=== PATIENT | male | born 1950 | race Caucasian/White ===

== ENCOUNTER 2019-10-30 10:18 | Inpatient (IN) | payer MEDICARE ==
[2019-10-30] VITALS (233 sets, daily range): BP systolic 155–163; BP diastolic 82–90; PULSE 81–100; TEMP 98.4; O2SAT 81–97
[~2019-10-30] VITALS: Ht 152.4 cm; Wt 81.7 kg
[~2019-10-30 10:18] MED LIST: ADVAIR 250/28 DISKUS IH; LEVAQUIN 5500 MG/TAB PO; PREDNISONE20 MG PO; PRILOSEC 20MG20 MG PO; SINGULAIR10 MG PO; SPIRIVA INH; VYTORIN PO; ZYRTEC 10MG PO
[2019-10-30 10:54] LABS: BASO % 0.1 % (0.0-2.0); EOS % 0.3 % (0-4.0); GRAN % 73.4 % (42.2-75.2); HEMATOCRIT 37.8 % (42.0-52.0); HEMOGLOBIN 13.8 g/dl (13.5-18.0); LYMPH # 0.9 (1.2-3.4); LYMPH % 13.4 % (20.0-51.0); MEAN CELL VOLUME 88 fl (80.0-100.0); MEAN CORPUSCULAR HEMOGLOBIN 32 pg (27.0-31.0); MEAN CORPUSCULAR HGB CONC 37 g/dl (33.0-37.0); MEAN PLATELET VOLUME 8.4 fl (7.4-10.4); MONO # 0.8 (0.1-0.6); MONO % 12.2 % (1.7-9.3); PLATELET COUNT 211 K/mm3 (130-400); RED BLOOD COUNT 4.29 M/mm3 (4.20-5.60); REDCELL DISTRIBUTION WIDTH-CV 12.7 % (11.5-14.5)
[2019-10-30] MEDS ORDERED: SPIRIVA RE2.5 MCG/Ac IH (11:00)
[2019-10-30] MEDS ORDERED: LIPITOR 40MG TA40 MG PO (11:01)
[2019-10-30] MEDS ORDERED: TIAZAC180 MG PO (11:01)
[2019-10-30] MEDS ORDERED: PRINIVIL40 MG PO (11:01)
[2019-10-30] MEDS ORDERED: XOPENEX HF0.045 MG/A IH (11:02)
[2019-10-30 11:03] LABS: ARTERIAL BLD GAS TCO2 CT 21.6; ARTERIAL BLOOD GAS BASE EXCESS -1.1 (-2-2); ARTERIAL BLOOD GAS HCO3 20.8 meq/L (22-26); ARTERIAL BLOOD GAS PCO2 28.4 mmHg (35-45); ARTERIAL BLOOD GAS pH 7.48 (7.35-7.45)
[2019-10-30 11:06] LABS: ALANINE AMINOTRANSFERASE 33 U/L (4-49); ALBUMIN 3.9 gm/dL (3.5-5.0); ALKALINE PHOSPHATASE 90 U/L (50-136); ANION GAP 12 mmol/L (7-16); AST,SGOT 66 U/L (15-37); BILIRUBIN,TOTAL 1.4 mg/dL (0.0-1.0); BLOOD UREA NITROGEN 12 mg/dL (9-20); CALCIUM 8.4 mg/dL (8.4-10.2); CARBON DIOXIDE 23 mmol/L (22-30); CHLORIDE 91 mmol/L (98-107); CREATININE, serum 0.82 (0.66-1.25); GLUCOSE 104 mg/dL (74-106); MAGNESIUM 1.8 mg/dL (1.6-2.3); POTASSIUM 3.4 mmol/L (3.4-5.0); SODIUM 126 mmol/L (137-145); TOTAL PROTEIN 6.8 gm/dL (6.4-8.2)
[2019-10-30 11:15] LABS: TROPONIN-I < 0.012 ng/mL (0.000-0.035)
[2019-10-30 11:17] LABS: C-REACTIVE PROTEIN 18.6 mg/dL (0.0-0.9)
--- NOTE | 2019-10-30 16:30 | NUR ---
was notified of consult for patient.
--- NOTE | 2019-10-30 19:00 | NUR ---
Report given to medical RN. She will finish report upstairs and them come down and get patient. Patient is aware he will be transferring up to the medical floor.
--- NOTE | 2019-10-30 22:30 | NUR ---
This RN transported pt to medical unit from ICU via wheelchair. All personal belongings with pt. Arrived to room 304 around 2200. Report received from ICU nurse Pippa. Pt oriented to room and shift assessment completed. Lungs clear to auscultation, heart rate and rhythm regular, skin warm dry and intact. IV to left AC intact, flushes easily, NS restarted on IV pump at 75 ml/hr. Nasal cannula in place at 5 L/min O2. Pt denies pain or other concerns at this time. Call light in reach.
[2019-10-31 04:30] VITALS: BP 148/84; PULSE 82; TEMP 97.4
--- NOTE | 2019-10-31 07:30 | NUR ---
Pt rested in room since arrival to unit. Accidentally pulled out IV when ambulating to restroom. New IV placed to right AC and fluids restarted. IV antibiotics administered per orders.
[2019-10-31 08:11] VITALS: BP 178/90; PULSE 88; TEMP 97.7
--- NOTE | 2019-10-31 10:35 | NUR ---
PT AMBULATED TO THE BATHROOM AND THEN SOB AFTERWARDS, EVEN WITH REST IN BED PT IS SOB, OXYGEN RANGING FROM 88-91% ON 5L OXYMASK, DENIES PAIN OR DISCOMFORT, DOES NOT LIKE TO WAIT FOR CARE, UPSET NURSES HAD TO TRY MULTIPLE TIMES TO GET IV IN LAST NIGHT, UA COLLECTED FOR LAB, VITALS REVIEWED, MEDS GIVEN, ASSESSMENT PERFORMED, NO OTHER NEEDS.
[2019-10-31 13:01] VITALS: BP 178/98; PULSE 99; TEMP 97.7
--- NOTE | 2019-10-31 13:09 | NUR ---
Dr. Nunes notified of pt inc BP.
[2019-10-31 13:16] LABS: BASO % 0.1 % (0.0-2.0); GRAN # 6.5 (1.4-6.5); GRAN % 84.1 % (42.2-75.2); HEMOGLOBIN 13.1 g/dl (13.5-18.0); LYMPH # 0.4 (1.2-3.4); LYMPH % 5.2 % (20.0-51.0); MEAN CELL VOLUME 89 fl (80.0-100.0); MEAN CORPUSCULAR HEMOGLOBIN 32 pg (27.0-31.0); MEAN CORPUSCULAR HGB CONC 37 g/dl (33.0-37.0); MEAN PLATELET VOLUME 8.5 fl (7.4-10.4); MONO # 0.8 (0.1-0.6); MONO % 10.1 % (1.7-9.3); PLATELET COUNT 248 K/mm3 (130-400); RED BLOOD COUNT 4.04 M/mm3 (4.20-5.60); REDCELL DISTRIBUTION WIDTH-CV 12.4 % (11.5-14.5)
[2019-10-31 13:33] LABS: HEMATOCRIT 35.8 % (42.0-52.0)
[2019-10-31 13:34] LABS: ALBUMIN 3.5 gm/dL (3.5-5.0); BILIRUBIN,TOTAL 0.9 mg/dL (0.0-1.0); CALCIUM 8.1 mg/dL (8.4-10.2); CREATININE, serum 0.71 (0.66-1.25); POTASSIUM 4.4 mmol/L (3.4-5.0); TOTAL PROTEIN 6.2 gm/dL (6.4-8.2)
--- NOTE | 2019-10-31 14:22 | NUR ---
The patient is COVID positive. CARLOS attempted to contact the patient's room phone to discuss discharge plan. The patient did not answer. CARLOS then contacted the patient's , Do, to complete intake. The patient lives in [place] with his . Do reports that the patient is independent with ADLs and does not have any assistive devices. Do reports that the patient does have home oxygen that he normally only uses in the evening. Do states that he has been using the oxygen throughout the day lately. She could not recall what DME company the patient receives the oxygen from. The patient's PCP is Dr. Amrik Patel on [address] and he also receives his medications on [address]. Do reports that she believes the patient has a DPOA-HC completed and that she is the patient's DPOA-HC. Do reports that she has no concerns with the patient returning back home with her upon discharge. The patient is currently on five liters of oxygen. CARLOS to continue to follow.
[2019-10-31 15:31] VITALS: BP 164/82; PULSE 91; TEMP 97.5
--- NOTE | 2019-10-31 17:31 | NUR ---
PT AOX4, APPEARS ANXIOUS, BP BETTER CONTROLLED WITH METOPROLOL ADDITION TO MAR, PT MEDICATIONS HUNG, VITALS TAKEN, ASSESSMENT PERFORMED, PT ON 5L OXYMASK, PT DENIES PAIN OR DISCOMFORT, PT HAS PRODUCTIVE COUGH WITH BLOOD TINGED SPUTUM. NO OTHER NEEDS AT THIS TIME. NO FEVERS DURING THIS SHIFT.
--- NOTE | 2019-10-31 18:42 | NUR ---
PT GETTING RESTLESS IN ROOM, CONTINUALLY SAYS "OH I WAS GONNA LEAVE" WHEN ASKED WHY HE WAS TRYING TO GET UP. NO OTHER NEEDS AT THIS TIME.
[2019-10-31 21:02] VITALS: BP 154/84; PULSE 84; TEMP 97.9
--- NOTE | 2019-10-31 21:32 | NUR ---
Pt resting in bed, denies shortness of breath or chest pain. nonproductive cough, lung sounds are diminished. heart sounds are regular with S1 and S2 present. pt is on oxygen at 5 liters. pt refused lovenox this evening. no other needs at this time.
--- NOTE | 2019-10-31 23:47 | NUR ---
Pt requested pill to "help him sleep", gave xanax prn per orders. documented in APR.
[2019-10-31 23:57] VITALS: BP 152/86; PULSE 79; TEMP 97.8
[2019-11-01 04:00] VITALS: BP 154/88; PULSE 100; TEMP 97.8
--- NOTE | 2019-11-01 05:07 | NUR ---
pt sleeping in bed most of the night, called minimally during shift. gave prn xanax for anxiety and to help pt sleep per pt request. will continue to monitor.
--- NOTE | 2019-11-01 07:20 | NUR ---
PATIENT ON 5LPM, 93%. PATIENT ON 3LPM,, 90%. PATIENT BACK TO 5LPM.
[2019-11-01 08:00] VITALS: BP 138/72; PULSE 83; TEMP 97.3
[2019-11-01 11:08] LABS: BASO % 0.1 % (0.0-2.0); GRAN # 12.4 (1.4-6.5); GRAN % 85.8 % (42.2-75.2); HEMATOCRIT 40.1 % (42.0-52.0); HEMOGLOBIN 14.3 g/dl (13.5-18.0); LYMPH # 0.6 (1.2-3.4); LYMPH % 4.1 % (20.0-51.0); MEAN CELL VOLUME 90 fl (80.0-100.0); MEAN CORPUSCULAR HEMOGLOBIN 32 pg (27.0-31.0); MEAN CORPUSCULAR HGB CONC 36 g/dl (33.0-37.0); MEAN PLATELET VOLUME 8.4 fl (7.4-10.4); MONO # 1.2 (0.1-0.6); MONO % 8.6 % (1.7-9.3); RED BLOOD COUNT 4.45 M/mm3 (4.20-5.60); REDCELL DISTRIBUTION WIDTH-CV 12.8 % (11.5-14.5)
[2019-11-01 11:17] LABS: ALBUMIN 3.9 gm/dL (3.5-5.0); CALCIUM 8.5 mg/dL (8.4-10.2); CREATININE, serum 0.75 (0.66-1.25); POTASSIUM 3.6 mmol/L (3.4-5.0); TOTAL PROTEIN 6.8 gm/dL (6.4-8.2)
[2019-11-01 11:34] LABS: PLATELET COUNT 391 K/mm3 (130-400)
[2019-11-01 13:05] VITALS: BP 148/96; PULSE 86; TEMP 97.7
[2019-11-01 16:00] VITALS: BP 158/70; PULSE 83; TEMP 97.3
--- NOTE | 2019-11-01 18:53 | NUR ---
PT HAD UNEVENTFUL DAY. CONTINUED TREATMENT INDICATED. PT RECEIVED ABX AND IS STILL MAINTAINING THE O2 REQUIREMENT OF 6L. WILL ENDORSE TO NIGHT RN.
[2019-11-01 20:00] VITALS: BP 154/80; PULSE 92; TEMP 98.6
--- NOTE | 2019-11-01 20:00 | NUR ---
Assessment complete. Patient is wearing oxygen via nasal cannula and is tolerating well, satting at 93%. He has a persistent cough that is sometimes productive; patient is afebrile at this time. Gait is steady. No new concerns, will continue to monitor.
[2019-11-02 01:53] VITALS: BP 128/80; PULSE 80; TEMP 98
--- NOTE | 2019-11-02 06:30 | NUR ---
Pt is in bed at this time. He is rather agitated that this RN is here to draw labs that he thought were already drawn. Pt is now requesting Xanax and some Aleeve stating he cannot have Tylenol. Will contact physician regarding these issues. Assessment completed. No further concerns at this time. Call light within reach.
[2019-11-02 07:35] LABS: MEAN CELL VOLUME 89 fl (80.0-100.0); MEAN CORPUSCULAR HEMOGLOBIN 32 pg (27.0-31.0); MEAN CORPUSCULAR HGB CONC 36 g/dl (33.0-37.0); MEAN PLATELET VOLUME 8.3 fl (7.4-10.4); PLATELET COUNT 334 K/mm3 (130-400); RED BLOOD COUNT 4.05 M/mm3 (4.20-5.60); REDCELL DISTRIBUTION WIDTH-CV 12.6 % (11.5-14.5)
[2019-11-02 07:40] LABS: HEMATOCRIT 35.9 % (42.0-52.0)
[2019-11-02 07:54] LABS: ALBUMIN 3.5 gm/dL (3.5-5.0); CALCIUM 8.2 mg/dL (8.4-10.2); CREATININE, serum 0.71 (0.66-1.25); POTASSIUM 3.8 mmol/L (3.4-5.0); TOTAL PROTEIN 6.1 gm/dL (6.4-8.2)
[2019-11-02 08:00] VITALS: BP 158/72; PULSE 91; TEMP 97.1
[2019-11-02 09:22] LABS: BAND 10 % (0-10); LYMPHOCYTE 6 % (20.0-51.0); NEUTROPHILS 69 % (42.0-75.2); PLATELET ESTIMATE NORMAL (NORMAL)
[2019-11-02] MEDS ORDERED: DOXYCYCLINE 10100 MG PO (11:59)
[2019-11-02] MEDS ORDERED: KLONOPIN 0.5MG0.5 MG PO ×2 (12:00→14:20)
[2019-11-02] MEDS ORDERED: LEVAQUIN 5500 MG/TA1 PO (12:00)
[2019-11-02] MEDS ORDERED: DECADRON6 MG PO (12:03)
== END 2019-11-02 13:00 | disposition home or self-care (01) | DRG 177 ==
LOC: COL.ER 10:18 → ICU 11:44 → MEDICAL 19:05 → PEDS 10-31 02:52
PROVIDERS: Emergency Medicine; ADMIT Hospitalist
DX: U07.1 COVID-19 (principal); J96.21 Acute and chronic respiratory failure with hypoxia; J12.89 Other viral pneumonia; E87.3 Alkalosis; E87.1 Hypo-osmolality and hyponatremia; J44.0 Chronic obstructive pulmonary disease with (acute) lower respiratory infection; K21.9 Gastro-esophageal reflux disease without esophagitis; F41.9 Anxiety disorder, unspecified; E87.6 Hypokalemia; I10 Essential (primary) hypertension
CPT/HCPCS: 99222-AI; 99232-AI; 99233-AI; 99239; J0696; J1100; J1650; J7030